=== PATIENT | male | born 1995 | race Caucasian/White ===

== ENCOUNTER 2019-03-27 09:13 | Emergency (ER) | payer MEDICAID ==
[2019-03-27] MEDS: LIDOCAINE 1% (MDV) 20 ML INJ SC (09:49)
[2019-03-27] MEDS: BACITRACIN 0.9 GM OINT TOP (09:49)
[2019-03-27] MEDS: LIDOCAINE 4% CR TOP (09:50)
== END 2019-03-27 10:44 | disposition home or self-care (01) ==
LOC: FTE 10:44
DX: L60.0 Ingrowing nail (principal)
CPT/HCPCS: 11765; 99283-25